=== PATIENT | female | born 1955 | race Caucasian/White ===

== ENCOUNTER 2017-05-14 22:57 | Inpatient (IN) | payer MEDICAID, MEDICARE ==
[~2017-05-14] VITALS: Ht 167.6 cm; Wt 134.7 kg
[~2017-05-14 22:57] MED LIST: ASPIR 8181 MG ORAL; ASPIRIN325 MG ORAL; CRESTOR40 MG ORAL; FOLIC ACID1 MG ORAL; GLIPIZIDE5 MG ORAL; JANUVIA100 MG ORAL; METFORMIN HCL500 M1 ORAL; PLAVIX75 MG ORAL; RAMIPRIL5 MG ORAL
[2017-05-14] MEDS ORDERED: CARVEDILOL3.125 MG GT (23:13)
[2017-05-14] MEDS ORDERED: NOVOLOG100 UNIT/3 SUBQ (23:13)
[2017-05-14] MEDS ORDERED: NORCO 5-325 TA1 EACH (23:13)
[2017-05-14] MEDS ORDERED: VITAMIN C250 MG GT (23:13)
[2017-05-14] MEDS ORDERED: FERROUS SU300 MG/5 M ORAL (23:13)
[2017-05-14] MEDS ORDERED: FAMOTIDINE20 MG GT (23:13)
[2017-05-14] MEDS ORDERED: HEPARIN SO5000 UNIT2 SUBQ (23:13)
[2017-05-14] MEDS ORDERED: DUONEB 0.5-3(2.53 ML HHN (23:13)
[2017-05-14] MEDS ORDERED: PROMOD946 ML GT (23:13)
[2017-05-14] MEDS ORDERED: LEVETIRACE100 MG/1 M GT (23:13)
[2017-05-14] MEDS ORDERED: AMIODARONE HCL400 M1 NG (23:13)
[2017-05-14] MEDS ORDERED: RENA-VITE RX T1 EAC1 GT (23:13)
[2017-05-14] MEDS ORDERED: VIMPAT10 MG/1 ML GT (23:13)
--- NOTE | 2017-05-14 23:19 | Emergency Room Report ---
History of Present Illness General Chief Complaint: Vomiting Source: Patient Present Illness HPI 61-year-old female, respiratory failure, tracheostomy to ventilator, bedbound, hypertension, end-stage renal disease on dialysis Saturday, last dialysis was today, diabetes, presenting with 2 days of intractable nausea and vomiting. Patient not able to speak, EMS states that patient has had within 5- 6 episodes of nonbilious nonbloody vomiting per day. No diarrhea. Patient able to answer yes or no questions. Currently denying abdominal pain. Allergies: Coded Allergies: CODEINE (Verified Allergy, Mild, 04/07/14) Patient History Past Medical History: see triage record Past Surgical History: unable to obtain Pertinent Family History: unable to obtain Last Menstrual Period: NA Now: No Reviewed Nursing Documentation: PMH: Agreed, PSxH: Agreed Nursing Documentation-PMH Hx Hypertension: Yes Hx Diabetes: Yes - Type 2 DM Hx Cancer: No Hx Gastrointestinal Problems: Yes - ESRD, dependence on Renal Dialysis Hx Neurological Problems: Yes - dysphagia, muscle weakness Hx Cerebrovascular Accident: Yes - MINI STROKE 2002 Review of Systems All Other Systems: negative except mentioned in HPI Physical Exam Vital Signs Date Time Temp Pulse Resp B/P (MAP) Pulse Ox O2 Delivery O2 Flow Rate FiO2 05/14/17 22:57 97.9 99 18 150/74 99 Room Air Sp02 EP Interpretation: reviewed, normal General Appearance: mild distress, other - obese elderly female, trach'ed to vent, awake and can answer yes/no ?s, Chronically Ill Head: normocephalic, atraumatic Eyes: bilateral eye normal inspection, bilateral eye PERRL, bilateral eye EOMI ENT: normal pharynx, moist mucus membranes Neck: normal inspection, full range of motion, supple Respiratory: other - [facility] b/s b/l. trach in place Cardiovascular #1: normal peripheral pulses, regular rate, rhythm, edema Cardiovascular #2: 2+ radial (R), 2+ radial (L) Gastrointestinal: other - peg tube in place, nontender all parts of abdomen. soft Musculoskeletal: normal inspection, back normal, normal range of motion, non- tender Neurologic: other - awake, can move upper ext spont and on command. cannot cooperate with full neuro exam Psychiatric: normal inspection, judgement/insight normal, memory normal Skin: normal inspection, normal color, no rash, warm/dry, well hydrated, normal turgor Medical Decision Making Diagnostic Impression: Primary Impression: Intractable nausea and vomiting Additional Impression: ESRD (end stage renal disease) ER Course 61-year-old female, tracheostomy, PEG tube, intractable nausea and vomiting for 2 days Differential Diagnosis: Gastritis, gastroenteritis, cholecystitis, appendicitis, diverticulitis, UTI/ pyelo SBO, mesenteric ischemia, cardiac At this time abdomen is soft nontender, not likely to have acute intra- abdominal surgical pathology, will hold CT for now. No history of obstipation. Plan: Basic labs, ua, ekg Zofran, IVF ER course: Patient has remained HD stable during ED stay. given ivf and zofran Disposition: Patient will be admitted to [facility] Discussed with hospitalist Dr Burgos Please note that this Emergency Department Report was dictated using [employer]ment[employer] developer technology software, occasionally this can lead to erroneous entry secondary to interpretation by the dictation equipment EKG Diagnostic Results EP Interpretation: Yes Rate: normal Rhythm: NSR ST Segments: No acute changes ASA given to patient: No Rhythm Strip EP Interpretation: Yes Rate: 95 Rhythm: NSR, no PVCs, no ectopy Chest X-ray CXR: Ordered: Yes 1 view Indication: Chest pain EP interpretation: Yes Interpretation: Cardiomegaly with pulmonary vascular congestion. Dialysis catheter noted right-sided chest. Tracheostomy tube. Impression: Cardiomegaly with pulmonary vascular congestion. Dialysis catheter noted right-sided chest. Tracheostomy tube. Electronically signed by Farideh Borges MD Laboratory Tests Test 05/14/17 23:30 White Blood Count 14.9 K/UL (4.8-10.8) H Red Blood Count 3.23 M/UL (4.20-5.40) L Hemoglobin 9.4 G/DL (12.0-16.0) L Hematocrit 29.5 % (37.0-47.0) L Mean Corpuscular Volume 91 FL (80-99) Mean Corpuscular Hemoglobin 29.0 PG (27.0-31.0) Mean Corpuscular Hemoglobin Concent 31.8 G/DL (32.0-36.0) L Red Cell Distribution Width 16.1 % (11.6-14.8) H Platelet Count 612 K/UL (150-450) H Mean Platelet Volume 5.0 FL (6.5-10.1) L Neutrophils (%) (Auto) 75.5 % (45.0-75.0) H Lymphocytes (%) (Auto) 18.0 % (20.0-45.0) L Monocytes (%) (Auto) 4.7 % (1.0-10.0) Eosinophils (%) (Auto) 1.4 % (0.0-3.0) Basophils (%) (Auto) 0.5 % (0.0-2.0) Sodium Level 139 MMOL/L (136-145) Potassium Level 3.1 MMOL/L (3.5-5.1) L Chloride Level 100 MMOL/L (98-107) Carbon Dioxide Level 31 MMOL/L (21-32) Anion Gap 8 mmol/L (5-15) Blood Urea Nitrogen 28 mg/dL (7-18) H Creatinine 3.4 MG/DL (0.55-1.30) H Estimate Glomerular Filtration Rate 13.7 mL/min (>60) Glucose Level 173 MG/DL (74-106) H Lactic Acid Level 0.90 mmol/L (0.66-2.22) Calcium Level 8.8 MG/DL (8.5-10.1) Total Bilirubin 0.4 MG/DL (0.2-1.0) Aspartate Amino Transferase (AST) 10 U/L (15-37) L Alanine Aminotransferase (ALT) 12 U/L (12-78) Alkaline Phosphatase 224 U/L (46-116) H Troponin I 0.037 ng/mL (0.000-0.056) Pro-B-Type Natriuretic Peptide > 01623 pg/mL (0-125) H Total Protein 7.5 G/DL (6.4-8.2) Albumin 1.6 G/DL (3.4-5.0) L Globulin 5.9 g/dL Albumin/Globulin Ratio 0.3 (1.0-2.7) L Last Vital Signs Date Time Temp Pulse Resp B/P (MAP) Pulse Ox O2 Delivery O2 Flow Rate FiO2 05/14/17 22:57 97.9 99 18 150/74 99 Room Air Disposition: ADMITTED INPATIENT Condition: Serious Farideh Borges M.D. May 14, 2017 23:19
[2017-05-14 23:30] VITALS: BP 150/74
[2017-05-14 23:54] LABS: BASOPHILS % (AUTO) 0.5 % (0.0-2.0); EOSINOPHILS % (AUTO) 1.4 % (0.0-3.0); HEMATOCRIT 29.5 % (37.0-47.0); HEMOGLOBIN 9.4 G/DL (12.0-16.0); MEAN CORPUSCULAR VOLUME 91 FL (80-99); MONOCYTES % (AUTO) 4.7 % (1.0-10.0); NEUTROPHILS % (AUTO) 75.5 % (45.0-75.0); PLATELET COUNT 612 K/UL (150-450); RED BLOOD COUNT 3.23 M/UL (4.20-5.40); RED CELL DISTRIBUTION WIDTH 16.1 % (11.6-14.8); WHITE BLOOD COUNT 14.9 K/UL (4.8-10.8)
[2017-05-15] VITALS (7 sets, daily range): BP systolic 110–140; BP diastolic 51–66
[2017-05-15 00:07] LABS: ANION GAP 8 mmol/L (5-15); BLOOD UREA NITROGEN 28 mg/dL (7-18); CALCIUM 8.8 MG/DL (8.5-10.1); CARBON DIOXIDE 31 MMOL/L (21-32); CHLORIDE 100 MMOL/L (98-107); CREATININE 3.4 MG/DL (0.55-1.30); POTASSIUM 3.1 MMOL/L (3.5-5.1); SODIUM 139 MMOL/L (136-145)
[2017-05-15 00:17] LABS: ALANINE AMINOTRANSFERASE 12 U/L (12-78); ALBUMIN 1.6 G/DL (3.4-5.0); ALBUMIN/GLOBULIN RATIO 0.3 (1.0-2.7); ALKALINE PHOSPHATASE 224 U/L (46-116); ASPARTATE AMINO TRANSFERASE 10 U/L (15-37); BILIRUBIN,TOTAL 0.4 MG/DL (0.2-1.0)
[2017-05-15 06:24] LABS: BASOPHILS % (AUTO) 0.4 % (0.0-2.0); HEMATOCRIT 26.1 % (37.0-47.0); HEMOGLOBIN 8.2 G/DL (12.0-16.0); LYMPHOCYTES % (AUTO) 17.8 % (20.0-45.0); MEAN CORPUSCULAR VOLUME 93 FL (80-99); MONOCYTES % (AUTO) 4.6 % (1.0-10.0); NEUTROPHILS % (AUTO) 76.3 % (45.0-75.0); PLATELET COUNT 549 K/UL (150-450); RED BLOOD COUNT 2.81 M/UL (4.20-5.40); RED CELL DISTRIBUTION WIDTH 16.3 % (11.6-14.8); WHITE BLOOD COUNT 16.1 K/UL (4.8-10.8)
[2017-05-15 06:46] LABS: ANION GAP 10 mmol/L (5-15); BLOOD UREA NITROGEN 29 mg/dL (7-18); CALCIUM 8.6 MG/DL (8.5-10.1); CARBON DIOXIDE 28 MMOL/L (21-32); CHLORIDE 101 MMOL/L (98-107); CREATININE 3.5 MG/DL (0.55-1.30); POTASSIUM 3.3 MMOL/L (3.5-5.1); SODIUM 139 MMOL/L (136-145)
[2017-05-15] MEDS: levETIRAcetam 500mg/5ml Liquid GT SCH ×2 (08:45→21:16)
[2017-05-15] MEDS: Lacosamide 100 MG TABLET ORAL SCH ×2 (08:45→21:16)
[2017-05-15 09:33] LABS: % IRON SATURATION 20 % (15-50); IRON 20 ug/dL (50-175); TOTAL IRON BINDING CAPACITY 100 ug/dL (250-450)
[2017-05-15 09:49] LABS: CHOLESTEROL 132 MG/DL (< 200); GAMMA GLUTAMYL TRANSPEPTIDASE 46 U/L (5-85); HDL CHOLESTEROL 37 MG/DL (40-60); PHOSPHORUS 3.3 MG/DL (2.5-4.9); TRIGLYCERIDES 54 MG/DL (30-150)
[2017-05-15 10:37] LABS: FERRITIN 1649 NG/ML (8-388)
--- NOTE | 2017-05-15 11:30 | Diagnostic Imaging Report ---
Indication: Pain, vomiting Technique: XRAY Chest 1v Comparison: None Findings: Heart appears borderline enlarged. There is pulmonary vascular congestion. There is patchy retrocardiac atelectasis/consolidation. Small left pleural effusion. No pneumothorax. Tracheostomy tube and right-sided dialysis catheter in place. Probable gastrostomy tube partially visualized Impression: Cardiomegaly with apparent pulmonary vascular congestion. These findings may be exaggerated by somewhat low lung volumes. Patchy retrocardiac atelectasis/consolidation. Small left pleural effusion. Study was obtained via the emergency department however the patient was admitted to the hospital at the the time of the final dictation.
[2017-05-15] MEDS: Piperacillin/Tazobactam 2.25 GM in D5W 55 ML IVPB SCH ×2 (13:32→21:16)
--- NOTE | 2017-05-15 15:26 | Consultation ---
Consult Note Consult Note asked to eval for dialysis management- Patient Vent-Trach not historian 61-year-old female, respiratory failure, tracheostomy to ventilator, bedbound, hypertension, end-stage renal disease on dialysis Saturday, last dialysis was today, diabetes, presenting with 2 days of intractable nausea and vomiting. Patient not able to speak, EMS states that patient has had within 5- 6 episodes of nonbilious nonbloody vomiting per day. No diarrhea. Patient able to answer yes or no questions. Currently denying abdominal pain. Allergies: CODEINE (Verified Allergy, Mild, 04/07/14) Hx Hypertension: Yes Hx Diabetes: Yes - Type 2 DM Hx Gastrointestinal Problems: Yes - ESRD, dependence on Renal Dialysis Hx Neurological Problems: Yes - dysphagia, muscle weakness Hx Cerebrovascular Accident: Yes - MINI STROKE 2002 examined- data reviewed Assessment/Plan ESRD- Intractable nausea and vomiting- Chronic Respiratory failure- Anemia Obesity Sz disorders DM Plan: HD as needed, will schedule for 05/16 Optimize pulmonary and cardiac status per consultants RICK LEUNG May 15, 2017 15:26
--- NOTE | 2017-05-15 18:57 | Wound Care Consultation ---
Wound Assessment Wound Assessment : Wound Number: 1 Wound Present on Admission: Yes New Wound: No Status Change of Wound: No Wound Location Body Site Modif: mid Wound Location Body Site: sacral Wound Type: pressure ulcer Rachel Test: Does not Rachel Pressure Ulcer Stage: Unstageable Wound Thickness: Full Thickness Wound Length: 7.5 Wound Width: 7.5 Wound Depth: utd Percent of Wound [place]/Red: 50 Percent of Wound Bed Yellow/Wh: 50 Wound Drainage Description: Serosanguineous Wound Drainage Amount: Moderate Wound Drainage Odor: Mild Odor Tissue Surrounding Wound: Macerated Wound General Appearance: Reddened - yellow slough, Draining, Unapproximated , Necrotic, Tendon Visible, Muscle Visible, Bone Visible Wound Comment #1 Sacral unstageable pressure ulcer Recommendation -Local wound care per protocol -Keep clean and dry -Optimize nutrition -Turn and reposition -Offload both heels -Low air loss mattress -Heel protector on both heel -Assess and f/u accordingly for any changes DEBORA ART RN May 15, 2017 18:56
--- NOTE | 2017-05-15 20:32 | Consultation ---
DATE OF CONSULTATION: 05/15/2017 INFECTIOUS DISEASES CONSULTATION PRIMARY ATTENDING PHYSICIAN: Simone Murillo M.D. REASON FOR CONSULT: Leukocytosis. HISTORY OF PRESENT ILLNESS: This is a 61-year-old white female, who is an [facility] resident, admitted last night with intractable nausea and vomiting for two days. There was no bile in vomiting material. She is poor historian, had leukocytosis that increased to 16.1 today. The patient was afebrile. PAST MEDICAL HISTORY: Ventilator-dependent respiratory failure, end-stage renal disease on hemodialysis, diabetes mellitus, has sacral pressure ulcer stage IV, morbid obesity, and history of CVA. PAST SURGICAL HISTORY: Status post G-tube, status post tracheostomy, status post cataract surgery, and had Port-A-Cath placement. MEDICATIONS: Getting Keppra, Zofran, and . ALLERGIES: Allergic to codeine. SOCIAL HISTORY: [facility] resident. No other history obtainable. PHYSICAL EXAMINATION: VITAL SIGNS: Temperature 97.7 degrees, pulse 80, blood pressure 122/61. GENERAL APPEARANCE: No acute distress, morbidly obese. HEAD AND NECK: [place] conjunctivae. Status post tracheostomy. HEART: Normal rate, regular. LUNGS: Clear. ABDOMEN: Soft. G-tube in place. EXTREMITIES: She has no edema. She has left arm PICC line. The patient also has right-sided PermCath. LABORATORY AND DIAGNOSTIC DATA: WBC 16.1, hemoglobin 8.2, hematocrit 26.1, and platelet 549. Sodium 139, potassium 3.3, chloride 101, bicarbonate 28, BUN 29, creatinine elevated, and glucose 168. Alkaline phosphatase is slightly elevated 224. BNP is more than 35,000. Albumin is low 1.6. The patient had a chest x-ray, cardiomegaly with congestion, patchy retrocardiac atelectasis, consolidation. IMPRESSION: Leukocytosis in a patient who has nausea and vomiting. We will try to rule out intraabdominal infection. We will try to rule out urinary tract infection. The patient has stage IV sacral pressure ulcer, has diabetes mellitus, end-stage renal disease, ventilator-dependent respiratory failure, morbid obesity, and anemia. RECOMMENDATION: We will start the patient on Zosyn. We will obtain abdominal ultrasound. We will obtain UA and urine culture. We will follow up clinically. At the end of my exam, I thank Dr. Murillo for involving me in the care of this patient. Maximo Chacon M.D. DR: CATRACHO JOB#: [id number] CC: RADHA
[2017-05-16 00:46] VITALS: BP 118/55
[2017-05-16 04:00] VITALS: BP 152/82
[2017-05-16 05:34] LABS: HEMATOCRIT 24.5 % (37.0-47.0); HEMOGLOBIN 7.9 G/DL (12.0-16.0); MEAN CORPUSCULAR VOLUME 92 FL (80-99); PLATELET COUNT 529 K/UL (150-450); RED BLOOD COUNT 2.65 M/UL (4.20-5.40); RED CELL DISTRIBUTION WIDTH 16.4 % (11.6-14.8); WHITE BLOOD COUNT 16.6 K/UL (4.8-10.8)
[2017-05-16 06:01] LABS: ALANINE AMINOTRANSFERASE < 6 U/L (12-78); ALBUMIN 1.4 G/DL (3.4-5.0); ALBUMIN/GLOBULIN RATIO 0.3 (1.0-2.7); ALKALINE PHOSPHATASE 183 U/L (46-116); ANION GAP 8 mmol/L (5-15); ASPARTATE AMINO TRANSFERASE 9 U/L (15-37); BILIRUBIN,TOTAL 0.4 MG/DL (0.2-1.0); BLOOD UREA NITROGEN 32 mg/dL (7-18); CALCIUM 8.1 MG/DL (8.5-10.1); CARBON DIOXIDE 30 MMOL/L (21-32); CHLORIDE 102 MMOL/L (98-107); CREATININE 3.9 MG/DL (0.55-1.30); GAMMA GLUTAMYL TRANSPEPTIDASE 45 U/L (5-85); PHOSPHORUS 3.6 MG/DL (2.5-4.9); POTASSIUM 3.3 MMOL/L (3.5-5.1); SODIUM 140 MMOL/L (136-145)
[2017-05-16] MEDS: Piperacillin/Tazobactam 2.25 GM in D5W 55 ML IVPB SCH ×2 (06:23→13:32)
[2017-05-16 08:04] VITALS: BP 129/55
--- NOTE | 2017-05-16 08:15 | Consultation ---
DATE OF CONSULTATION: 05/15/2017 HEMATOLOGY/ONCOLOGY CONSULTATION CONSULTING PHYSICIAN: Yang Small M.D. REQUESTING PHYSICIAN: Simone Murillo M.D. REASON FOR CONSULTATION: Evaluation of anemia. IDENTIFICATION DATA: Dear Dr. Simone Murillo. The patient is a pleasant 61-year-old female with chronic respiratory failure, tracheostomy, is on ventilator, hypertension, 00:23 and end-stage renal disease on dialysis three times a week getting her dialysis, presenting today with intractable nausea and vomiting and not able to speak. EMS was called. The patient has had five to six episodes of nonbilious and nonbloody vomiting. Hematology service consulted for further evaluation and treatment. Currently, denies any abdominal pain. 00:45. Hematology service consulted for further evaluation and treatment. PAST MEDICAL HISTORY: End-stage renal disease, on dialysis, dysphagia, CVA, diabetes mellitus, and hypertension. PAST SURGICAL HISTORY: None noted. ALLERGIES: Codeine. REVIEW OF SYSTEMS: A 12-point review of systems is otherwise negative besides as noted in the history of present illness. PHYSICAL EXAMINATION: GENERAL: He is on vent and trach. VITAL SIGNS: Reviewed. PULMONARY: Decreased breath sounds. CARDIOVASCULAR: Regular rate. No S3 or S4. ABDOMEN: Soft, nontender, and nondistended. Positive 01:27 tube. EXTREMITIES: 1+ to 2+ edema. LABORATORY DATA: WBC of 15.9, hemoglobin 9.5, hematocrit 01:34, and platelet count 612,000. ASSESSMENT AND RECOMMENDATIONS: 1. Anemia secondary to chronic disease. 01:42 anemia workup. Hemoglobin goal is above 7. 2. Anemia secondary to kidney disease. Continue to closely monitor. Continue Epogen. 3. Leukocytosis, potentially secondary to underlying infection. Further monitor. Consider antibiotics if worsens. 4. Thrombocytosis, 02:08 secondary to underlying anemia. 5. Respiratory failure. She is on tracheostomy management. 6. Dysphagia, status post percutaneous endoscopic gastrostomy tube 02:14. 7. Mini stroke in 2002. I appreciate the consultation. Yang Small M.D. DR: Joe JOB#: [id number] CC:
--- NOTE | 2017-05-16 08:45 | History and Physical Report ---
DATE OF ADMISSION: 05/14/2017 NOTE: POOR AUDIO HISTORY OF PRESENT ILLNESS: The patient is admitted for intractable nausea and vomiting at the custodial. The patient is a poor historian, does have dementia, has history of seizure disorder, hypertension, diabetes, and end-stage renal disease, on hemodialysis. I cannot get any history from the patient. persistent vomiting. PAST MEDICAL HISTORY: History of NIDDM, history of morbid obesity, history of seizure disorder, history of hypertension, history of urinary incontinence, history of dysphagia, history of pneumonia, history of GERD, past history of J-tube as well as trach, , and history of COPD. ALLERGIES: Codeine. MEDICATIONS: Insulin, Coreg, Plavix, , ferrous sulfate, glipizide, Keppra, metformin, Crestor, and Januvia. FAMILY HISTORY: Unable to obtain. SOCIAL HISTORY: Unable to obtain. REVIEW OF SYSTEMS: Unable to obtain. PHYSICAL EXAMINATION: VITAL SIGNS: Temperature is 98.2, pulse 82, and blood pressure . HEENT: PERRLA. NECK: Supple. No lymphadenopathy. CHEST: Clear to auscultation. is intact. CARDIOVASCULAR: Regular rate and rhythm. GASTROINTESTINAL: Soft, distended. Positive bowel sounds. No organomegaly. EXTREMITIES: A 2+ edema. Morbid obesity, has generalized weakness. nursing notes. LABORATORY DATA: WBC of 14.9, hemoglobin 9.4, and platelets of 612,000. Sodium 139, potassium 3.1, BUN of 28, creatinine 3.4, and glucose of 127. ASSESSMENT AND PLAN: 1. Intractable vomiting. 2. Hypokalemia. 3. End-stage renal disease, on hemodialysis. 4. Seizure history. I have asked Dr. Lutz, Dr. Coe, Dr. Jackson, and Dr. Iniguez to see the patient for the above-mentioned diagnoses and treatment. We will talk to . regarding causes of intractable vomiting for the patient. Simone Murillo M.D. DR: DANETTE/GARETT JOB#: [id number] CC:
[2017-05-16] MEDS: levETIRAcetam 500mg/5ml Liquid GT SCH ×2 (08:53→21:00)
[2017-05-16] MEDS: Lacosamide 100 MG TABLET ORAL SCH ×2 (08:54→21:00)
[2017-05-16] MEDS: Amiodarone 200mg tab NG SCH (08:54)
[2017-05-16] MEDS: Dakin's 0.25% (Half Strength) 16oz TOPIC SCH (08:56)
[2017-05-16] MEDS ORDERED: Dakin's 0.25% (Half Strength) 16oz TOPIC SCH (09:00)
--- NOTE | 2017-05-16 10:12 | Diagnostic Imaging Report ---
Indication:Abdominal pain Technique: Grayscale and duplex Doppler imaging of the abdomen performed. Comparison: None Findings: Study is limited with regards to visualization of certain structures such as the spleen. Left kidney not adequately seen. The gallbladder is noted and distended with no evidence of gallstones or wall thickening. There is no ascites. CBD is normal in caliber measuring 5 mm. The liver is enlarged measuring 19 cm and appears slightly echogenic. The proximal aorta is normal in caliber. The middle distal aorta are not seen. Portal vein is patent by Doppler examination. Demonstrated part of the pancreas is unremarkable. No gross abnormalities of the right kidney identified. IMPRESSION: Unremarkable gallbladder examination. Hepatomegaly with fatty infiltration. Limited evaluation as discussed above
--- NOTE | 2017-05-16 10:30 | General Progress Note ---
Assessment/Plan Assessment/Plan GI CONSULT Assessment - N/V at SNF - possibly due to feeding via G port - s/p GJ tube, presumed due to gastroparesis - Anemia, likely due to CRF and chronic disease - resp failure, s/p trach - h/o CVA Recommendations - check CT abd/pelvis - if CT negative, restart feeds via J port - G port to gravity and for meds - elevate HOB - PPI Thank you Camilo Iniguez MD Subjective Allergies: Coded Allergies: CODEINE (Verified Allergy, Mild, 04/07/14) Objective Last 24 Hour Vital Signs Date Time Temp Pulse Resp B/P (MAP) Pulse Ox O2 Delivery O2 Flow Rate FiO2 05/16/17 09:38 82 18 40 05/16/17 08:55 83 05/16/17 08:54 80 129/55 05/16/17 08:04 97.8 80 21 129/55 99 Mechanical Ventilator 40 05/16/17 08:00 40 05/16/17 07:26 81 18 40 05/16/17 05:01 79 18 40 05/16/17 04:00 76 05/16/17 04:00 99.7 94 20 152/82 98 Mechanical Ventilator 40 05/16/17 04:00 40 05/16/17 03:42 83 18 40 05/16/17 01:01 81 18 40 05/16/17 00:46 99.0 84 20 118/55 100 40 05/15/17 22:40 80 18 40 05/15/17 21:15 82 140/63 05/15/17 20:42 82 18 40 05/15/17 20:00 84 05/15/17 20:00 40 05/15/17 20:00 98.9 84 19 110/51 100 Endotracheal Tube 40 05/15/17 18:48 81 18 40 05/15/17 16:47 79 19 40 05/15/17 16:00 85 05/15/17 16:00 98.2 83 18 140/63 100 Endotracheal Tube 40 05/15/17 16:00 40 05/15/17 15:46 72 19 40 05/15/17 12:40 75 19 40 05/15/17 12:00 98.2 80 21 121/59 100 Endotracheal Tube 40 05/15/17 12:00 79 05/15/17 12:00 40 05/15/17 11:04 80 18 40 Intake and Output 05/15/17 05/16/17 19:00 07:00 Intake Total 55 ml 110 ml Output Total 125 ml 75 ml Balance -70 ml 35 ml IV Total 55 ml 110 ml Output Urine Total 125 ml 75 ml # Bowel Movements 1 1 Laboratory Tests 05/16/17 04:45: White Blood Count 16.6H, Red Blood Count 2.65L, Hemoglobin 7.9L, Hematocrit 24.5L, Mean Corpuscular Volume 92, Mean Corpuscular Hemoglobin 29.8, Mean Corpuscular Hemoglobin Concent 32.2, Red Cell Distribution Width 16.4H, Platelet Count 529H, Mean Platelet Volume 5.0L, Neutrophils (%) (Auto) , Lymphocytes (%) (Auto) , Monocytes (%) (Auto) , Eosinophils (%) (Auto) , Basophils (%) (Auto) , Differential Total Cells Counted 100, Neutrophils % ( Manual) 83H, Lymphocytes % (Manual) 14L, Monocytes % (Manual) 3, Eosinophils % ( Manual) 0, Basophils % (Manual) 0, Band Neutrophils 0, Platelet Estimate Adequate, Platelet Morphology Normal, Hypochromasia 3+, Anisocytosis 1+, Spherocytes 1+, Sodium Level 140, Potassium Level 3.3L, Chloride Level 102, Carbon Dioxide Level 30, Anion Gap 8, Blood Urea Nitrogen 32H, Creatinine 3.9H, Estimat Glomerular Filtration Rate 11.6, Glucose Level 158H, Uric Acid 5.9, Calcium Level 8.1L, Phosphorus Level 3.6, Magnesium Level 2.4, Total Bilirubin 0.4, Gamma Glutamyl Transpeptidase 45, Aspartate Amino Transf (AST/SGOT) 9L, Alanine Aminotransferase (ALT/SGPT) < 6L, Alkaline Phosphatase 183H, Troponin I 0.050, C-Reactive Protein, Quantitative 5.3H, Pro-B-Type Natriuretic Peptide > 29629N, Total Protein 6.3L, Albumin 1.4L, Globulin 4.9, Albumin/Globulin Ratio 0.3L Height (Feet): 5 Height (Inches): 6.00 Weight (Pounds): 297 ASHWINCAMILO CONNELL May 16, 2017 10:30
--- NOTE | 2017-05-16 10:55 | Nephrology Progress Note ---
Assessment/Plan Problem List: (1) ESRD (end stage renal disease) (2) Intractable nausea and vomiting Assessment ESRD- Intractable nausea and vomiting- Chronic Respiratory failure- Anemia Obesity Sz disorders DM Plan Plan: K supplement transfuse 2 units HD as needed, will schedule for 05/16 Optimize pulmonary and cardiac status per consultants Subjective ROS Limited/Unobtainable: Yes Objective Objective Last 24 Hour Vital Signs Date Time Temp Pulse Resp B/P (MAP) Pulse Ox O2 Delivery O2 Flow Rate FiO2 05/16/17 09:38 82 18 40 05/16/17 08:55 83 05/16/17 08:54 80 129/55 05/16/17 08:04 97.8 80 21 129/55 99 Mechanical Ventilator 40 05/16/17 08:00 40 05/16/17 07:26 81 18 40 05/16/17 05:01 79 18 40 05/16/17 04:00 76 05/16/17 04:00 99.7 94 20 152/82 98 Mechanical Ventilator 40 05/16/17 04:00 40 05/16/17 03:42 83 18 40 05/16/17 01:01 81 18 40 05/16/17 00:46 99.0 84 20 118/55 100 40 05/15/17 22:40 80 18 40 05/15/17 21:15 82 140/63 05/15/17 20:42 82 18 40 05/15/17 20:00 84 05/15/17 20:00 40 05/15/17 20:00 98.9 84 19 110/51 100 Endotracheal Tube 40 05/15/17 18:48 81 18 40 05/15/17 16:47 79 19 40 05/15/17 16:00 85 05/15/17 16:00 98.2 83 18 140/63 100 Endotracheal Tube 40 05/15/17 16:00 40 05/15/17 15:46 72 19 40 05/15/17 12:40 75 19 40 05/15/17 12:00 98.2 80 21 121/59 100 Endotracheal Tube 40 05/15/17 12:00 79 05/15/17 12:00 40 05/15/17 11:04 80 18 40 Intake and Output 05/15/17 05/16/17 19:00 07:00 Intake Total 55 ml 110 ml Output Total 125 ml 75 ml Balance -70 ml 35 ml IV Total 55 ml 110 ml Output Urine Total 125 ml 75 ml # Bowel Movements 1 1 Laboratory Tests 05/16/17 04:45: White Blood Count 16.6H, Red Blood Count 2.65L, Hemoglobin 7.9L, Hematocrit 24.5L, Mean Corpuscular Volume 92, Mean Corpuscular Hemoglobin 29.8, Mean Corpuscular Hemoglobin Concent 32.2, Red Cell Distribution Width 16.4H, Platelet Count 529H, Mean Platelet Volume 5.0L, Neutrophils (%) (Auto) , Lymphocytes (%) (Auto) , Monocytes (%) (Auto) , Eosinophils (%) (Auto) , Basophils (%) (Auto) , Differential Total Cells Counted 100, Neutrophils % ( Manual) 83H, Lymphocytes % (Manual) 14L, Monocytes % (Manual) 3, Eosinophils % ( Manual) 0, Basophils % (Manual) 0, Band Neutrophils 0, Platelet Estimate Adequate, Platelet Morphology Normal, Hypochromasia 3+, Anisocytosis 1+, Spherocytes 1+, Sodium Level 140, Potassium Level 3.3L, Chloride Level 102, Carbon Dioxide Level 30, Anion Gap 8, Blood Urea Nitrogen 32H, Creatinine 3.9H, Estimat Glomerular Filtration Rate 11.6, Glucose Level 158H, Uric Acid 5.9, Calcium Level 8.1L, Phosphorus Level 3.6, Magnesium Level 2.4, Total Bilirubin 0.4, Gamma Glutamyl Transpeptidase 45, Aspartate Amino Transf (AST/SGOT) 9L, Alanine Aminotransferase (ALT/SGPT) < 6L, Alkaline Phosphatase 183H, Troponin I 0.050, C-Reactive Protein, Quantitative 5.3H, Pro-B-Type Natriuretic Peptide > 51037R, Total Protein 6.3L, Albumin 1.4L, Globulin 4.9, Albumin/Globulin Ratio 0.3L Height (Feet): 5 Height (Inches): 6.00 Weight (Pounds): 297 General Appearance: no apparent distress, lethargic Cardiovascular: normal rate Respiratory/Chest: accessory muscle use Abdomen: distended RICK LEUNG May 16, 2017 10:55
--- NOTE | 2017-05-16 11:00 | Infectious Diseases Prog Note ---
Assessment/Plan Assessment/Plan A: Leukocytosis ? Pneumonia VDRF Fatty liver Morbid obesity ESRD on HD DM Anemia Stage 4 sacral ulcer P; Continue Zosyn Sputum culture Will f/u CT scan of abdomen & pelvis Subjective ROS Limited/Unobtainable: Yes Allergies: Coded Allergies: CODEINE (Verified Allergy, Mild, 04/07/14) Objective Vital Signs Last 24 Hour Vital Signs Date Time Temp Pulse Resp B/P (MAP) Pulse Ox O2 Delivery O2 Flow Rate FiO2 05/16/17 09:38 82 18 40 05/16/17 08:55 83 05/16/17 08:54 80 129/55 05/16/17 08:04 97.8 80 21 129/55 99 Mechanical Ventilator 40 05/16/17 08:00 40 05/16/17 07:26 81 18 40 05/16/17 05:01 79 18 40 05/16/17 04:00 76 05/16/17 04:00 99.7 94 20 152/82 98 Mechanical Ventilator 40 05/16/17 04:00 40 05/16/17 03:42 83 18 40 05/16/17 01:01 81 18 40 05/16/17 00:46 99.0 84 20 118/55 100 40 05/15/17 22:40 80 18 40 05/15/17 21:15 82 140/63 05/15/17 20:42 82 18 40 05/15/17 20:00 84 05/15/17 20:00 40 05/15/17 20:00 98.9 84 19 110/51 100 Endotracheal Tube 40 05/15/17 18:48 81 18 40 05/15/17 16:47 79 19 40 05/15/17 16:00 85 05/15/17 16:00 98.2 83 18 140/63 100 Endotracheal Tube 40 05/15/17 16:00 40 05/15/17 15:46 72 19 40 05/15/17 12:40 75 19 40 05/15/17 12:00 98.2 80 21 121/59 100 Endotracheal Tube 40 05/15/17 12:00 79 05/15/17 12:00 40 05/15/17 11:04 80 18 40 Height (Feet): 5 Height (Inches): 6.00 Weight (Pounds): 297 HEENT: status post trach Respiratory/Chest: lungs clear, other - on ventilator Cardiovascular: normal rate Abdomen: soft, non tender, other - G/J tube Extremities: no edema Neurologic/Psychiatric: other - opens eyes Laboratory Tests Test 05/16/17 04:45 White Blood Count 16.6 K/UL (4.8-10.8) H Red Blood Count 2.65 M/UL (4.20-5.40) L Hemoglobin 7.9 G/DL (12.0-16.0) L Hematocrit 24.5 % (37.0-47.0) L Mean Corpuscular Volume 92 FL (80-99) Mean Corpuscular Hemoglobin 29.8 PG (27.0-31.0) Mean Corpuscular Hemoglobin Concent 32.2 G/DL (32.0-36.0) Red Cell Distribution Width 16.4 % (11.6-14.8) H Platelet Count 529 K/UL (150-450) H Mean Platelet Volume 5.0 FL (6.5-10.1) L Neutrophils (%) (Auto) % (45.0-75.0) Lymphocytes (%) (Auto) % (20.0-45.0) Monocytes (%) (Auto) % (1.0-10.0) Eosinophils (%) (Auto) % (0.0-3.0) Basophils (%) (Auto) % (0.0-2.0) Differential Total Cells Counted 100 Neutrophils % (Manual) 83 % (45-75) H Lymphocytes % (Manual) 14 % (20-45) L Monocytes % (Manual) 3 % (1-10) Eosinophils % (Manual) 0 % (0-3) Basophils % (Manual) 0 % (0-2) Band Neutrophils 0 % (0-8) Platelet Estimate Adequate Platelet Morphology Normal Hypochromasia 3+ Anisocytosis 1+ Spherocytes 1+ Sodium Level 140 MMOL/L (136-145) Potassium Level 3.3 MMOL/L (3.5-5.1) L Chloride Level 102 MMOL/L (98-107) Carbon Dioxide Level 30 MMOL/L (21-32) Anion Gap 8 mmol/L (5-15) Blood Urea Nitrogen 32 mg/dL (7-18) H Creatinine 3.9 MG/DL (0.55-1.30) H Estimat Glomerular Filtration Rate 11.6 mL/min (>60) Glucose Level 158 MG/DL (74-106) H Uric Acid 5.9 MG/DL (2.6-7.2) Calcium Level 8.1 MG/DL (8.5-10.1) L Phosphorus Level 3.6 MG/DL (2.5-4.9) Magnesium Level 2.4 MG/DL (1.8-2.4) Total Bilirubin 0.4 MG/DL (0.2-1.0) Gamma Glutamyl Transpeptidase 45 U/L (5-85) Aspartate Amino Transf (AST/SGOT) 9 U/L (15-37) L Alanine Aminotransferase (ALT/SGPT) < 6 U/L (12-78) L Alkaline Phosphatase 183 U/L (46-116) H Troponin I 0.050 ng/mL (0.000-0.056) C-Reactive Protein, Quantitative 5.3 mg/dL (0.00-0.90) H Pro-B-Type Natriuretic Peptide > 24398 pg/mL (0-125) H Total Protein 6.3 G/DL (6.4-8.2) L Albumin 1.4 G/DL (3.4-5.0) L Globulin 4.9 g/dL Albumin/Globulin Ratio 0.3 (1.0-2.7) L Current Medications Medications (Trade) Dose Ordered Sig/Alejandro Route PRN Reason Start Time Stop Time Status Last Admin Dose Admin Amiodarone HCl (Cordarone) 200 mg DAILY NG 05/16/17 09:00 06/15/17 08:59 05/16/17 08:54 Carvedilol (Coreg) 3.125 mg EVERY 12 HOURS GT 05/15/17 21:00 06/14/17 20:59 05/16/17 08:54 Lacosamide (Vimpat) 200 mg Q12HR ORAL 05/15/17 09:00 06/14/17 08:59 05/16/17 08:54 Lansoprazole (Prevacid) 30 mg DAILY GT 05/17/17 09:00 06/16/17 08:59 Levetiracetam (Keppra) 1,000 mg Q12HR GT 05/15/17 09:00 06/14/17 08:59 05/16/17 08:53 Ondansetron HCl (Zofran) 4 mg Q6H PRN IVP Nausea & Vomiting 05/15/17 06:00 06/14/17 05:59 Piperacillin Sod/ Tazobactam Sod 2.25 gm/Dextrose 55 ml @ 110 mls/hr Q8HR IVPB 05/15/17 13:00 05/20/17 12:59 05/16/17 06:23 Sodium Hypochlorite (Dakin's Half Strength) 1 applic DAILY TOPIC 05/16/17 09:00 06/15/17 08:59 05/16/17 08:56 SLIME SOLIMAN May 16, 2017 11:00
[2017-05-16 12:07] VITALS: BP 117/52
--- NOTE | 2017-05-16 15:36 | Diagnostic Imaging Report ---
Indication: Abdominal pain Technique: Continuous helical transaxial imaging of the abdomen and pelvis was obtained from the lung bases to the pubic symphysis. No intravenous contrast was administered. Coronal 2-D reformats were also obtained. Automatic Exposure Control was utilized. Total Dose length Product (DLP): 1587.[address] Dose Index Volume (CTDIvol): 26.25 mGy Comparison: none Findings: There is a posterior basilar consolidation and small bilateral effusions. Generalized anasarca noted. Gastrostomy noted. Aorta is moderately calcified. Evaluation limited by the absence of intravenous contrast and breathing motion. No bowel obstruction identified. There is thickening of the wall of the rectosigmoid colon. Colitis not excluded distally. catheter noted in good position. Atrophic uterus noted. IMPRESSION: Limited study due to body habitus, lack of intravenous contrast material and breathing motion. Suspected colitis versus under distention in the rectosigmoid region. Please correlate clinically. Bilateral pleural effusions and posterior basilar atelectasis versus pneumonia. Anasarca Atherosclerotic disease Gastrostomy Small umbilical hernia containing fat catheter good position. The CT scanner at [facility] is accredited by the [employer] and the scans are performed using dose optimization techniques as appropriate to a performed exam including Automatic Exposure control.
[2017-05-16 16:00] VITALS: BP 134/62
--- NOTE | 2017-05-16 16:20 | General Progress Note ---
Assessment/Plan Assessment/Plan #. DVT bilaterally --> recommend ivc filter placement given anemia that is progressive, hold off anticoag --> agree with filter, obtain consent from family #. Anemia secondary to chronic disease. --> anemia w/u has been reviewed --> hgb goal >7 --> check occult blood #. Anemia secondary to kidney disease. Continue to closely monitor. Continue Epogen. #. Leukocytosis, potentially secondary to underlying infection. Further monitor. Consider antibiotics if worsens. #. Thrombocytosis, likely secondary to underlying anemia. #. Respiratory failure. She is on tracheostomy management. #. Dysphagia, status post percutaneous endoscopic gastrostomy tube #. Mini stroke in 2002. I appreciate the consultation. Subjective Constitutional: Denies: no symptoms, chills, diaphoresis, fever, malaise, weakness, other HEENT: Denies: no symptoms, eye pain, blurred vision, tearing, double vision, ear pain, ear discharge, nose pain, nose congestion, throat pain, throat swelling, mouth pain, mouth swelling, other Cardiovascular: Denies: no symptoms, chest pain, edema, irregular heart rate, lightheadedness, palpitations, syncope, other Respiratory: Denies: no symptoms, cough, orthopnea, shortness of breath, SOB with excertion, SOB at rest, sputum, stridor, wheezing, other Gastrointestinal/Abdominal: Denies: no symptoms, abdomen distended, abdominal pain, black stools, tarry stools, blood in stool, constipated, diarrhea, difficulty swallowing, nausea, poor appetite, poor fluid intake, rectal bleeding , vomiting, other Genitourinary: Denies: no symptoms, burning, discharge, frequency, flank pain, hematuria, incontinence, pain, urgency, other Neurologic/Psychiatric: Denies: no symptoms, anxiety, depressed, emotional problems, headache, numbness, paresthesia, pre-existing deficit, seizure, tingling, tremors, weakness, other Endocrine: Denies: no symptoms, excessive sweating, flushing, intolerance to cold, intolerance to heat, increased hunger, increased thirst, increased urine, unexplained weight gain, unexplained weight loss, other Hematologic/Lymphatic: Denies: no symptoms, anemia, easy bleeding, easy bruising, other Allergies: Coded Allergies: CODEINE (Verified Allergy, Mild, 04/07/14) Subjective on vent, trach Objective Last 24 Hour Vital Signs Date Time Temp Pulse Resp B/P (MAP) Pulse Ox O2 Delivery O2 Flow Rate FiO2 05/16/17 15:22 78 24 40 05/16/17 14:42 76 18 40 05/16/17 12:40 74 18 40 05/16/17 12:07 99.8 78 18 117/52 98 Mechanical Ventilator 40 05/16/17 12:00 40 05/16/17 12:00 77 05/16/17 11:18 82 18 40 05/16/17 09:38 82 18 40 05/16/17 08:55 83 05/16/17 08:54 80 129/55 05/16/17 08:04 97.8 80 21 129/55 99 Mechanical Ventilator 40 05/16/17 08:00 40 05/16/17 07:26 81 18 40 05/16/17 05:01 79 18 40 05/16/17 04:00 76 05/16/17 04:00 99.7 94 20 152/82 98 Mechanical Ventilator 40 05/16/17 04:00 40 05/16/17 03:42 83 18 40 05/16/17 01:01 81 18 40 05/16/17 00:46 99.0 84 20 118/55 100 40 05/15/17 22:40 80 18 40 05/15/17 21:15 82 140/63 05/15/17 20:42 82 18 40 05/15/17 20:00 84 05/15/17 20:00 40 05/15/17 20:00 98.9 84 19 110/51 100 Endotracheal Tube 40 05/15/17 18:48 81 18 40 05/15/17 16:47 79 19 40 Intake and Output 05/15/17 05/16/17 19:00 07:00 Intake Total 55 ml 110 ml Output Total 125 ml 75 ml Balance -70 ml 35 ml IV Total 55 ml 110 ml Output Urine Total 125 ml 75 ml # Bowel Movements 1 1 Laboratory Tests 05/16/17 04:45: White Blood Count 16.6H, Red Blood Count 2.65L, Hemoglobin 7.9L, Hematocrit 24.5L, Mean Corpuscular Volume 92, Mean Corpuscular Hemoglobin 29.8, Mean Corpuscular Hemoglobin Concent 32.2, Red Cell Distribution Width 16.4H, Platelet Count 529H, Mean Platelet Volume 5.0L, Neutrophils (%) (Auto) , Lymphocytes (%) (Auto) , Monocytes (%) (Auto) , Eosinophils (%) (Auto) , Basophils (%) (Auto) , Differential Total Cells Counted 100, Neutrophils % ( Manual) 83H, Lymphocytes % (Manual) 14L, Monocytes % (Manual) 3, Eosinophils % ( Manual) 0, Basophils % (Manual) 0, Band Neutrophils 0, Platelet Estimate Adequate, Platelet Morphology Normal, Hypochromasia 3+, Anisocytosis 1+, Spherocytes 1+, Sodium Level 140, Potassium Level 3.3L, Chloride Level 102, Carbon Dioxide Level 30, Anion Gap 8, Blood Urea Nitrogen 32H, Creatinine 3.9H, Estimat Glomerular Filtration Rate 11.6, Glucose Level 158H, Uric Acid 5.9, Calcium Level 8.1L, Phosphorus Level 3.6, Magnesium Level 2.4, Total Bilirubin 0.4, Gamma Glutamyl Transpeptidase 45, Aspartate Amino Transf (AST/SGOT) 9L, Alanine Aminotransferase (ALT/SGPT) < 6L, Alkaline Phosphatase 183H, Troponin I 0.050, C-Reactive Protein, Quantitative 5.3H, Pro-B-Type Natriuretic Peptide > 34532R, Total Protein 6.3L, Albumin 1.4L, Globulin 4.9, Albumin/Globulin Ratio 0.3L Height (Feet): 5 Height (Inches): 6.00 Weight (Pounds): 297 General Appearance: no apparent distress EENT: TMs normal Neck: normal alignment Cardiovascular: normal rate Respiratory/Chest: chest wall non-tender Abdomen: non tender Extremities: non-tender Edema: 1+ Leg (L), 1+ Leg (R) Neurologic: alert Skin: warm/dry Yang Small May 16, 2017 16:20
--- NOTE | 2017-05-16 19:43 | General Progress Note ---
Assessment/Plan Problem List: (1) ESRD (end stage renal disease) ICD Codes: N18.6 - End stage renal disease SNOMED: 61193128 (2) Intractable nausea and vomiting ICD Codes: R11.2 - Nausea with vomiting, unspecified SNOMED: 059959698 Status: progressing Assessment/Plan afebrile vitals stable trach and j gtube persistent vomiting dm h//o gastroparesis sz chronic leukocytosis anemia of chronic dz Subjective ROS Limited/Unobtainable: Yes Allergies: Coded Allergies: CODEINE (Verified Allergy, Mild, 04/07/14) Objective Last 24 Hour Vital Signs Date Time Temp Pulse Resp B/P (MAP) Pulse Ox O2 Delivery O2 Flow Rate FiO2 05/16/17 19:23 76 22 40 05/16/17 16:40 75 18 40 05/16/17 16:00 84 05/16/17 16:00 98.5 77 18 134/62 99 Mechanical Ventilator 40 05/16/17 16:00 40 05/16/17 15:22 78 24 40 05/16/17 14:42 76 18 40 05/16/17 12:40 74 18 40 05/16/17 12:07 99.8 78 18 117/52 98 Mechanical Ventilator 40 05/16/17 12:00 40 05/16/17 12:00 77 05/16/17 11:18 82 18 40 05/16/17 09:38 82 18 40 05/16/17 08:55 83 05/16/17 08:54 80 129/55 05/16/17 08:04 97.8 80 21 129/55 99 Mechanical Ventilator 40 05/16/17 08:00 40 05/16/17 07:26 81 18 40 05/16/17 05:01 79 18 40 05/16/17 04:00 76 05/16/17 04:00 99.7 94 20 152/82 98 Mechanical Ventilator 40 05/16/17 04:00 40 05/16/17 03:42 83 18 40 05/16/17 01:01 81 18 40 05/16/17 00:46 99.0 84 20 118/55 100 40 05/15/17 22:40 80 18 40 05/15/17 21:15 82 140/63 05/15/17 20:42 82 18 40 05/15/17 20:00 84 05/15/17 20:00 40 05/15/17 20:00 98.9 84 19 110/51 100 Endotracheal Tube 40 Intake and Output 05/15/17 05/16/17 19:00 07:00 Intake Total 55 ml 110 ml Output Total 125 ml 75 ml Balance -70 ml 35 ml IV Total 55 ml 110 ml Output Urine Total 125 ml 75 ml # Bowel Movements 1 1 Laboratory Tests 05/16/17 04:45: White Blood Count 16.6H, Red Blood Count 2.65L, Hemoglobin 7.9L, Hematocrit 24.5L, Mean Corpuscular Volume 92, Mean Corpuscular Hemoglobin 29.8, Mean Corpuscular Hemoglobin Concent 32.2, Red Cell Distribution Width 16.4H, Platelet Count 529H, Mean Platelet Volume 5.0L, Neutrophils (%) (Auto) , Lymphocytes (%) (Auto) , Monocytes (%) (Auto) , Eosinophils (%) (Auto) , Basophils (%) (Auto) , Differential Total Cells Counted 100, Neutrophils % ( Manual) 83H, Lymphocytes % (Manual) 14L, Monocytes % (Manual) 3, Eosinophils % ( Manual) 0, Basophils % (Manual) 0, Band Neutrophils 0, Platelet Estimate Adequate, Platelet Morphology Normal, Hypochromasia 3+, Anisocytosis 1+, Spherocytes 1+, Sodium Level 140, Potassium Level 3.3L, Chloride Level 102, Carbon Dioxide Level 30, Anion Gap 8, Blood Urea Nitrogen 32H, Creatinine 3.9H, Estimat Glomerular Filtration Rate 11.6, Glucose Level 158H, Uric Acid 5.9, Calcium Level 8.1L, Phosphorus Level 3.6, Magnesium Level 2.4, Total Bilirubin 0.4, Gamma Glutamyl Transpeptidase 45, Aspartate Amino Transf (AST/SGOT) 9L, Alanine Aminotransferase (ALT/SGPT) < 6L, Alkaline Phosphatase 183H, Troponin I 0.050, C-Reactive Protein, Quantitative 5.3H, Pro-B-Type Natriuretic Peptide > 71267O, Total Protein 6.3L, Albumin 1.4L, Globulin 4.9, Albumin/Globulin Ratio 0.3L Height (Feet): 5 Height (Inches): 6.00 Weight (Pounds): 297 Simone Murillo MD May 16, 2017 19:43
[2017-05-16 20:00] VITALS: BP 130/67
--- NOTE | 2017-05-16 21:15 | Consultation ---
DATE OF CONSULTATION: 05/16/2017 GASTROENTEROLOGY CONSULTATION REPORT CONSULTING PHYSICIAN: Camilo Iniguez M.D. CHIEF COMPLAINT: I was asked to see this patient by Dr. Simone Murillo for evaluation of vomiting. HISTORY OF PRESENT ILLNESS: The patient is an unfortunate 61-year-old white woman with chronic respiratory failure with a tracheostomy and with chronic renal failure, on dialysis. She was brought in from a longterm due to intractable nausea and vomiting. The patient herself was not very communicative and unable to provide any details. In the hospital here, so far she has not vomited, but she has been kept NPO. I called the longterm and the nurse told me that according to the notes, she has been fed through the gastrostomy port with a gastrojejunostomy catheter. The patient does have a gastrojejunostomy catheter placed, but the records are from a different hospital. Presumably, she was placed for gastroparesis, but this detail was not available to me at this time. The patient also has a leukocytosis for which she is receiving antibiotics. PAST MEDICAL HISTORY: History of end-stage renal disease, on dialysis. Dysphagia, status post gastrostomy tube placement. Respiratory failure, status post tracheostomy tube placement. Stroke, diabetes, hypertension, and anemia. ALLERGIES: Codeine. FAMILY HISTORY: Noncontributory. SOCIAL HISTORY: The patient resides in a longterm and requires [id number] care. REVIEW OF SYSTEMS: Otherwise negative. PHYSICAL EXAMINATION: GENERAL: Debilitated white woman, seen in her room. HEENT: Normocephalic and atraumatic. Sclerae anicteric. NECK: Showed tracheostomy catheter. CHEST: Revealed coarse breath sounds. CARDIOVASCULAR: Revealed a regular rate. ABDOMEN: Soft with good bowel sounds. Gastrojejunostomy catheter was in good position and both ports flushed repeatedly. EXTREMITIES: Revealed trace edema. LABORATORY DATA: Laboratory data was noted. ASSESSMENT: This patient presents with an intractable nausea and vomiting from a longterm of unclear etiology. Given the report from the longterm, it is possible that the gastrostomy tube feeding through the gastrostomy port may have resulted in vomiting from presumed gastroparesis. A trial tube feeding will be given here again, but this time through jejunostomy catheter. Since the patient has a white count elevation, then a CT scan of the abdomen and pelvis should be done to rule out any intraabdominal pathology such as abscesses, infections, or obstruction. Antibiotics were given as written by the Infectious Diseases pci security consultant. I will advice the nursing staff to place the gastrostomy catheter to gravity. RECOMMENDATIONS: Per above discussion and per orders written in the chart. Thank you for asking me to participate in the care of this patient. Camilo Iniguez M.D. DR: TANIKA JOB#: [id number] CC:
[2017-05-17] VITALS: BP 151/53
[2017-05-17] MEDS: Piperacillin/Tazobactam 2.25 GM in D5W 55 ML IVPB SCH ×3 (00:16→13:56)
[2017-05-17 04:00] VITALS: BP 109/60
[2017-05-17 08:00] VITALS: BP 150/62
[2017-05-17] MEDS: levETIRAcetam 500mg/5ml Liquid GT SCH (08:46)
[2017-05-17] MEDS: Amiodarone 200mg tab NG SCH (08:46)
[2017-05-17] MEDS: Lacosamide 100 MG TABLET ORAL SCH (08:46)
[2017-05-17] MEDS: Dakin's 0.25% (Half Strength) 16oz TOPIC SCH (08:47)
--- NOTE | 2017-05-17 08:54 | Infectious Diseases Prog Note ---
Assessment/Plan Assessment/Plan A: Leukocytosis Pneumonia Colitis VDRF Fatty liver Morbid obesity ESRD on HD DM Anemia Stage 4 sacral ulcer P; Continue Zosyn, add Flagyl Will f/u sputum culture Subjective ROS Limited/Unobtainable: Yes Allergies: Coded Allergies: CODEINE (Verified Allergy, Mild, 04/07/14) Objective Vital Signs Last 24 Hour Vital Signs Date Time Temp Pulse Resp B/P (MAP) Pulse Ox O2 Delivery O2 Flow Rate FiO2 05/17/17 08:47 78 150/62 05/17/17 08:31 82 20 40 05/17/17 06:34 79 18 40 05/17/17 05:24 77 18 40 05/17/17 04:00 98.2 77 18 109/60 100 Mechanical Ventilator 40 05/17/17 04:00 40 05/17/17 03:55 83 05/17/17 02:56 80 22 40 05/17/17 01:16 79 23 40 05/17/17 00:00 98.4 74 20 151/53 100 Mechanical Ventilator 40 05/17/17 00:00 40 05/16/17 23:50 76 05/16/17 23:15 Mechanical Ventilator 40 05/16/17 23:03 78 22 40 05/16/17 21:00 73 130/67 05/16/17 20:44 72 24 40 05/16/17 20:10 Mechanical Ventilator 40 05/16/17 20:00 40 05/16/17 20:00 98.5 73 20 130/67 100 Mechanical Ventilator 40 05/16/17 19:23 76 22 40 05/16/17 19:10 73 05/16/17 16:40 75 18 40 05/16/17 16:00 84 05/16/17 16:00 98.5 77 18 134/62 99 Mechanical Ventilator 40 05/16/17 16:00 40 05/16/17 15:22 78 24 40 05/16/17 14:42 76 18 40 05/16/17 12:40 74 18 40 05/16/17 12:07 99.8 78 18 117/52 98 Mechanical Ventilator 40 05/16/17 12:00 40 05/16/17 12:00 77 05/16/17 11:18 82 18 40 05/16/17 09:38 82 18 40 05/16/17 08:55 83 05/16/17 08:54 80 129/55 Height (Feet): 5 Height (Inches): 6.00 Weight (Pounds): 297 General Appearance: no acute distress - seborrheic dermatitis of scalp Respiratory/Chest: rhonchi - bilaterally, other - on ventilator Cardiovascular: normal rate Abdomen: soft, non tender, other - GT feeding Extremities: no edema Neurologic/Psychiatric: alert, responsive Microbiology Date/Time Source Procedure Growth Status 05/16/17 11:30 Sputum Gram Stain Pending Resulted 05/16/17 11:30 Sputum Sputum Culture - Preliminary Resulted 05/15/17 02:30 Sacral Buckle Gram Stain - Final Resulted 05/15/17 02:30 Sacral Buckle Wound Culture - Preliminary Resulted Current Medications Medications (Trade) Dose Ordered Sig/Alejandro Route PRN Reason Start Time Stop Time Status Last Admin Dose Admin Amiodarone HCl (Cordarone) 200 mg DAILY NG 05/16/17 09:00 06/15/17 08:59 05/17/17 08:46 Carvedilol (Coreg) 3.125 mg EVERY 12 HOURS GT 05/15/17 21:00 06/14/17 20:59 05/17/17 08:47 Lacosamide (Vimpat) 200 mg Q12HR ORAL 05/15/17 09:00 06/14/17 08:59 05/17/17 08:46 Lansoprazole (Prevacid) 30 mg DAILY GT 05/17/17 09:00 06/16/17 08:59 05/17/17 08:47 Levetiracetam (Keppra) 1,000 mg Q12HR GT 05/15/17 09:00 06/14/17 08:59 05/17/17 08:46 Ondansetron HCl (Zofran) 4 mg Q6H PRN IVP Nausea & Vomiting 05/15/17 06:00 06/14/17 05:59 Piperacillin Sod/ Tazobactam Sod 2.25 gm/Dextrose 55 ml @ 110 mls/hr Q8HR IVPB 05/15/17 13:00 05/20/17 12:59 05/17/17 05:32 Sodium Hypochlorite (Dakin's Half Strength) 1 applic DAILY TOPIC 05/16/17 09:00 06/15/17 08:59 05/17/17 08:47 SLIME SOLIMAN May 17, 2017 08:54
[2017-05-17] MEDS: metroNIDAZOLE 500mg tab GT SCH ×2 (09:39→14:12)
[2017-05-17 10:13] LABS: BASOPHILS % (AUTO) 0.3 % (0.0-2.0); EOSINOPHILS % (AUTO) 2.5 % (0.0-3.0); HEMATOCRIT 30.8 % (37.0-47.0); HEMOGLOBIN 9.8 G/DL (12.0-16.0); LYMPHOCYTES % (AUTO) 16.5 % (20.0-45.0); MEAN CORPUSCULAR VOLUME 92 FL (80-99); MONOCYTES % (AUTO) 4.8 % (1.0-10.0); NEUTROPHILS % (AUTO) 75.9 % (45.0-75.0); PLATELET COUNT 494 K/UL (150-450); RED BLOOD COUNT 3.35 M/UL (4.20-5.40); RED CELL DISTRIBUTION WIDTH 15.3 % (11.6-14.8); WHITE BLOOD COUNT 17.1 K/UL (4.8-10.8)
--- NOTE | 2017-05-17 11:04 | General Progress Note ---
Assessment/Plan Assessment/Plan #. DVT bilaterally of the posterior tibial veins, agree that a IVC filter would have little benefit for her --> agree and reviewed literature in case of posterior tibial vein, would have little benefit for AC or IVC filter --> does not require anticoagulation, recheck duplex in 3 months #. Anemia secondary to chronic disease. --> anemia w/u has been reviewed --> hgb goal >7 --> check occult blood, which is negative #. Anemia secondary to kidney disease. Continue to closely monitor. Continue Epogen. #. Leukocytosis, potentially secondary to underlying infection. Further monitor. Consider antibiotics if worsens. #. Thrombocytosis, likely secondary to underlying anemia. #. Respiratory failure. She is on tracheostomy management. #. Dysphagia, status post percutaneous endoscopic gastrostomy tube #. Mini stroke in 2002. I appreciate the consultation. Subjective Constitutional: Denies: no symptoms, chills, diaphoresis, fever, malaise, weakness, other HEENT: Denies: no symptoms, eye pain, blurred vision, tearing, double vision, ear pain, ear discharge, nose pain, nose congestion, throat pain, throat swelling, mouth pain, mouth swelling, other Cardiovascular: Denies: no symptoms, chest pain, edema, irregular heart rate, lightheadedness, palpitations, syncope, other Respiratory: Denies: no symptoms, cough, orthopnea, shortness of breath, SOB with excertion, SOB at rest, sputum, stridor, wheezing, other Gastrointestinal/Abdominal: Denies: no symptoms, abdomen distended, abdominal pain, black stools, tarry stools, blood in stool, constipated, diarrhea, difficulty swallowing, nausea, poor appetite, poor fluid intake, rectal bleeding , vomiting, other Genitourinary: Denies: no symptoms, burning, discharge, frequency, flank pain, hematuria, incontinence, pain, urgency, other Neurologic/Psychiatric: Denies: no symptoms, anxiety, depressed, emotional problems, headache, numbness, paresthesia, pre-existing deficit, seizure, tingling, tremors, weakness, other Endocrine: Denies: no symptoms, excessive sweating, flushing, intolerance to cold, intolerance to heat, increased hunger, increased thirst, increased urine, unexplained weight gain, unexplained weight loss, other Hematologic/Lymphatic: Denies: no symptoms, anemia, easy bleeding, easy bruising, other Allergies: Coded Allergies: CODEINE (Verified Allergy, Mild, 04/07/14) Subjective on vent, trach Objective Last 24 Hour Vital Signs Date Time Temp Pulse Resp B/P (MAP) Pulse Ox O2 Delivery O2 Flow Rate FiO2 05/17/17 10:38 78 22 40 05/17/17 08:47 78 150/62 05/17/17 08:31 82 20 40 05/17/17 08:00 40 05/17/17 08:00 97.9 78 20 150/62 98 Mechanical Ventilator 40 05/17/17 07:53 77 05/17/17 06:34 79 18 40 05/17/17 05:24 77 18 40 05/17/17 04:00 98.2 77 18 109/60 100 Mechanical Ventilator 40 05/17/17 04:00 40 05/17/17 03:55 83 05/17/17 02:56 80 22 40 05/17/17 01:16 79 23 40 05/17/17 00:00 98.4 74 20 151/53 100 Mechanical Ventilator 40 05/17/17 00:00 40 05/16/17 23:50 76 05/16/17 23:15 Mechanical Ventilator 40 05/16/17 23:03 78 22 40 05/16/17 21:00 73 130/67 05/16/17 20:44 72 24 40 05/16/17 20:10 Mechanical Ventilator 40 05/16/17 20:00 40 05/16/17 20:00 98.5 73 20 130/67 100 Mechanical Ventilator 40 05/16/17 19:23 76 22 40 05/16/17 19:10 73 05/16/17 16:40 75 18 40 05/16/17 16:00 84 05/16/17 16:00 98.5 77 18 134/62 99 Mechanical Ventilator 40 05/16/17 16:00 40 05/16/17 15:22 78 24 40 05/16/17 14:42 76 18 40 05/16/17 12:40 74 18 40 05/16/17 12:07 99.8 78 18 117/52 98 Mechanical Ventilator 40 05/16/17 12:00 40 05/16/17 12:00 77 05/16/17 11:18 82 18 40 Intake and Output 05/16/17 05/17/17 19:00 07:00 Intake Total 120 ml 595 ml Output Total 2250 ml Balance 120 ml -1655 ml Free Water 50 ml 100 ml IV Total 110 ml Tube Feeding 70 ml 385 ml Output Urine Total 250 ml Hemodialysis UF 2000 ml # Bowel Movements 5 1 Laboratory Tests 05/17/17 09:55: White Blood Count 17.1H, Red Blood Count 3.35L, Hemoglobin 9.8L, Hematocrit 30.8L, Mean Corpuscular Volume 92, Mean Corpuscular Hemoglobin 29.2, Mean Corpuscular Hemoglobin Concent 31.8L, Red Cell Distribution Width 15.3H, Platelet Count 494H, Mean Platelet Volume 5.1L, Neutrophils (%) (Auto) 75.9H, Lymphocytes (%) (Auto) 16.5L, Monocytes (%) (Auto) 4.8, Eosinophils (%) (Auto) 2.5, Basophils (%) (Auto) 0.3, Sodium Level [Pending], Potassium Level [Pending] , Chloride Level [Pending], Carbon Dioxide Level [Pending], Blood Urea Nitrogen [Pending], Creatinine [Pending], Estimat Glomerular Filtration Rate [Pending], Glucose Level [Pending], Calcium Level [Pending], Phosphorus Level [Pending], Total Bilirubin [Pending], Aspartate Amino Transf (AST/SGOT) [Pending], Alanine Aminotransferase (ALT/SGPT) [Pending], Alkaline Phosphatase [Pending], Total Protein [Pending], Albumin [Pending], Globulin [Pending] Height (Feet): 5 Height (Inches): 6.00 Weight (Pounds): 297 General Appearance: no apparent distress EENT: normal ENT inspection Neck: normal inspection Cardiovascular: regular rhythm Respiratory/Chest: normal breath sounds Abdomen: no mass Extremities: non-tender Edema: no edema noted Leg (L), no edema noted Leg (R) Edema: moderate edema Neurologic: alert Yang Small May 17, 2017 11:04
[2017-05-17 11:17] LABS: ALANINE AMINOTRANSFERASE 6 U/L (12-78); ALBUMIN 1.4 G/DL (3.4-5.0); ALBUMIN/GLOBULIN RATIO 0.3 (1.0-2.7); ALKALINE PHOSPHATASE 191 U/L (46-116); ANION GAP 9 mmol/L (5-15); ASPARTATE AMINO TRANSFERASE 10 U/L (15-37); BILIRUBIN,TOTAL 0.5 MG/DL (0.2-1.0); BLOOD UREA NITROGEN 23 mg/dL (7-18); CALCIUM 8.2 MG/DL (8.5-10.1); CARBON DIOXIDE 28 MMOL/L (21-32); CHLORIDE 102 MMOL/L (98-107); CREATININE 3.1 MG/DL (0.55-1.30); PHOSPHORUS 3.1 MG/DL (2.5-4.9); POTASSIUM 3.2 MMOL/L (3.5-5.1); SODIUM 139 MMOL/L (136-145)
[2017-05-17 12:00] VITALS: BP 149/65
[2017-05-17] MEDS ORDERED: METRONIDAZOLE500 MG ORAL ×4 (12:27→12:36)
[2017-05-17] MEDS ORDERED: CUBICIN MONIT1 EA IV (12:29)
[2017-05-17] MEDS ORDERED: MEROPENEM500 MG IV (12:35)
--- NOTE | 2017-05-17 15:02 | Cardiology Report ---
APPROVED REPORT EKG Measurement Heart [id number] Normal sinus rhythm Anteroseptal infarct, age undetermined Abnormal ECG
--- NOTE | 2017-05-17 15:21 | Nephrology Progress Note ---
Assessment/Plan Problem List: (1) ESRD (end stage renal disease) (2) Intractable nausea and vomiting Assessment ESRD- Intractable nausea and vomiting- Chronic Respiratory failure- Anemia Obesity Sz disorders DM Plan Plan: K supplement transfused 2 units HD as needed,scheduled 05/16 and as needed Optimize pulmonary and cardiac status per consultants DC planning Subjective Constitutional: Reports: malaise Objective Objective Last 24 Hour Vital Signs Date Time Temp Pulse Resp B/P (MAP) Pulse Ox O2 Delivery O2 Flow Rate FiO2 05/17/17 14:54 79 18 40 05/17/17 12:47 72 19 40 05/17/17 12:00 40 05/17/17 12:00 98.1 77 20 149/65 99 Mechanical Ventilator 40 05/17/17 11:47 72 05/17/17 10:38 78 22 40 05/17/17 08:47 78 150/62 05/17/17 08:31 82 20 40 05/17/17 08:00 40 05/17/17 08:00 97.9 78 20 150/62 98 Mechanical Ventilator 40 05/17/17 07:53 77 05/17/17 06:34 79 18 40 05/17/17 05:24 77 18 40 05/17/17 04:00 98.2 77 18 109/60 100 Mechanical Ventilator 40 05/17/17 04:00 40 05/17/17 03:55 83 05/17/17 02:56 80 22 40 05/17/17 01:16 79 23 40 05/17/17 00:00 98.4 74 20 151/53 100 Mechanical Ventilator 40 05/17/17 00:00 40 05/16/17 23:50 76 05/16/17 23:15 Mechanical Ventilator 40 05/16/17 23:03 78 22 40 05/16/17 21:00 73 130/67 05/16/17 20:44 72 24 40 05/16/17 20:10 Mechanical Ventilator 40 05/16/17 20:00 40 05/16/17 20:00 98.5 73 20 130/67 100 Mechanical Ventilator 40 05/16/17 19:23 76 22 40 05/16/17 19:10 73 05/16/17 16:40 75 18 40 05/16/17 16:00 84 05/16/17 16:00 98.5 77 18 134/62 99 Mechanical Ventilator 40 05/16/17 16:00 40 05/16/17 15:22 78 24 40 Intake and Output 05/16/17 05/17/17 19:00 07:00 Intake Total 120 ml 595 ml Output Total 2250 ml Balance 120 ml -1655 ml Free Water 50 ml 100 ml IV Total 110 ml Tube Feeding 70 ml 385 ml Output Urine Total 250 ml Hemodialysis UF 2000 ml # Bowel Movements 5 1 Laboratory Tests 05/17/17 09:55: White Blood Count 17.1H, Red Blood Count 3.35L, Hemoglobin 9.8L, Hematocrit 30.8L, Mean Corpuscular Volume 92, Mean Corpuscular Hemoglobin 29.2, Mean Corpuscular Hemoglobin Concent 31.8L, Red Cell Distribution Width 15.3H, Platelet Count 494H, Mean Platelet Volume 5.1L, Neutrophils (%) (Auto) 75.9H, Lymphocytes (%) (Auto) 16.5L, Monocytes (%) (Auto) 4.8, Eosinophils (%) (Auto) 2.5, Basophils (%) (Auto) 0.3, Sodium Level 139, Potassium Level 3.2L, Chloride Level 102, Carbon Dioxide Level 28, Anion Gap 9, Blood Urea Nitrogen 23H, Creatinine 3.1H, Estimat Glomerular Filtration Rate 15.2, Glucose Level 183H, Calcium Level 8.2L, Phosphorus Level 3.1, Total Bilirubin 0.5, Aspartate Amino Transf (AST/SGOT) 10L, Alanine Aminotransferase (ALT/SGPT) 6L, Alkaline Phosphatase 191H, Total Protein 6.5, Albumin 1.4L, Globulin 5.1, Albumin/ Globulin Ratio 0.3L Height (Feet): 5 Height (Inches): 6.00 Weight (Pounds): 297 General Appearance: no apparent distress Respiratory/Chest: decreased breath sounds Abdomen: soft RICK LEUNG May 17, 2017 15:20
[2017-05-17 16:00] VITALS: BP 138/61
[2017-05-17] MEDS ORDERED: Tubing Blood Filter IV ONE (16:37)
[2017-05-17] MEDS ORDERED: Tubing IV Secondary IV ONE (16:37)
[2017-05-17] MEDS ORDERED: NS 275ml ONE (16:37)
--- NOTE | 2017-05-17 17:34 | General Progress Note ---
Assessment/Plan Assessment/Plan Assessment - N/V at SNF - suspect due to feeding via G port - s/p GJ tube, presumed due to gastroparesis - Anemia, likely due to CRF and chronic disease - resp failure, s/p trach - h/o CVA Recommendations - continue tube feeds via J port - G port to gravity and for meds - elevate HOB - PPI - d/c planning Subjective Allergies: Coded Allergies: CODEINE (Verified Allergy, Mild, 04/07/14) Subjective above noted seen in am tolerated TF all night no vomiting CT noted Objective Last 24 Hour Vital Signs Date Time Temp Pulse Resp B/P (MAP) Pulse Ox O2 Delivery O2 Flow Rate FiO2 05/17/17 16:00 98.1 76 20 138/61 97 Mechanical Ventilator 40 05/17/17 16:00 40 05/17/17 14:54 79 18 40 05/17/17 12:47 72 19 40 05/17/17 12:00 40 05/17/17 12:00 98.1 77 20 149/65 99 Mechanical Ventilator 40 05/17/17 11:47 72 05/17/17 10:38 78 22 40 05/17/17 08:47 78 150/62 05/17/17 08:31 82 20 40 05/17/17 08:00 40 05/17/17 08:00 97.9 78 20 150/62 98 Mechanical Ventilator 40 05/17/17 07:53 77 05/17/17 06:34 79 18 40 05/17/17 05:24 77 18 40 05/17/17 04:00 98.2 77 18 109/60 100 Mechanical Ventilator 40 05/17/17 04:00 40 05/17/17 03:55 83 05/17/17 02:56 80 22 40 05/17/17 01:16 79 23 40 05/17/17 00:00 98.4 74 20 151/53 100 Mechanical Ventilator 40 05/17/17 00:00 40 05/16/17 23:50 76 05/16/17 23:15 Mechanical Ventilator 40 05/16/17 23:03 78 22 40 05/16/17 21:00 73 130/67 05/16/17 20:44 72 24 40 05/16/17 20:10 Mechanical Ventilator 40 05/16/17 20:00 40 05/16/17 20:00 98.5 73 20 130/67 100 Mechanical Ventilator 40 05/16/17 19:23 76 22 40 05/16/17 19:10 73 Intake and Output 05/16/17 05/17/17 19:00 07:00 Intake Total 120 ml 630 ml Output Total 2250 ml Balance 120 ml -1620 ml Free Water 50 ml 100 ml IV Total 110 ml Tube Feeding 70 ml 420 ml Output Urine Total 250 ml Hemodialysis UF 2000 ml # Bowel Movements 5 1 Laboratory Tests 05/17/17 09:55: White Blood Count 17.1H, Red Blood Count 3.35L, Hemoglobin 9.8L, Hematocrit 30.8L, Mean Corpuscular Volume 92, Mean Corpuscular Hemoglobin 29.2, Mean Corpuscular Hemoglobin Concent 31.8L, Red Cell Distribution Width 15.3H, Platelet Count 494H, Mean Platelet Volume 5.1L, Neutrophils (%) (Auto) 75.9H, Lymphocytes (%) (Auto) 16.5L, Monocytes (%) (Auto) 4.8, Eosinophils (%) (Auto) 2.5, Basophils (%) (Auto) 0.3, Sodium Level 139, Potassium Level 3.2L, Chloride Level 102, Carbon Dioxide Level 28, Anion Gap 9, Blood Urea Nitrogen 23H, Creatinine 3.1H, Estimat Glomerular Filtration Rate 15.2, Glucose Level 183H, Calcium Level 8.2L, Phosphorus Level 3.1, Total Bilirubin 0.5, Aspartate Amino Transf (AST/SGOT) 10L, Alanine Aminotransferase (ALT/SGPT) 6L, Alkaline Phosphatase 191H, Total Protein 6.5, Albumin 1.4L, Globulin 5.1, Albumin/ Globulin Ratio 0.3L Height (Feet): 5 Height (Inches): 6.00 Weight (Pounds): 297 Objective Obese WW NCAT (+) trach CTA RRR Soft ND NT, (+) GJ tube no edema KELLEN IBANEZ May 17, 2017 17:34
--- NOTE | 2017-05-20 10:27 | Discharge Summary ---
Discharge Summary Hospital Course Date of Admission May 14, 2017 at 23:57 Date of Discharge May 17, 2017 at 16:38 Admitting Diagnosis intractable N/V HPI Abbie Prabhakar is a 61 year old female who was admitted on May 14, 2017 at 23:57 for Intractable Nausea/Vomiting Hospital Course dc summary #[id number] Discharge Medications Continued Medications: Amiodarone Hcl* (Amiodarone Hcl*) 400 Mg Tablet 200 MG NG DAILY, TAB Ascorbic Acid* (Vitamin C*) 250 Mg Tablet 250 MG GT DAILY, #30 TAB 0 Refills Carvedilol* (Carvedilol*) 3.125 Mg Tablet 3.125 MG GT EVERY 12 HOURS, TAB Famotidine (Famotidine) 20 Mg Tablet 20 MG GT DAILY, #30 TAB 0 Refills Ferrous Sulfate (Ferrous Sulfate) 300 Mg/5 Ml Liquid Unknown Dose ORAL, #473 ML 0 Refills Heparin Sod (Porcine) (Heparin Sodium*) 5 000/1 Ml Vial 5000 UNITS SUBQ EVERY 12 HOURS, VIAL Hydrocodone Bit/Acetaminophen 5-325* (Roosevelt 5-325*) 1 Each Tablet 1 TAB DAILY PRN for For Pain, TAB 0 Refills Insulin Aspart* (Novolog*) 100 Unit/1 Ml Insuln.pen 0 SUBQ, #1 EA 0 Refills Ipratropium/Albuterol Sulfate (DuoNeb 0.5-3(2.5)mg/3ml) 3 Ml Ampul.neb 3 ML HHN, EA Lacosamide (Vimpat) 10 Mg/1 Ml Solution 200 MG GT TWICE A DAY Levetiracetam* (Levetiracetam*) 100 Mg/1 Ml Solution 1000 MG GT BID Meropenem (Meropenem) 500 Mg Vial 500 MG IV DAILY for 5 Days, VIAL Metronidazole* (Flagyl*) 500 Mg Tablet 500 MG ORAL EVERY 8 HOURS for 7 Days, TAB Protein Supplement (Promod) 946 Ml Liquid 30 ML GT FOUR TIMES A DAY, ML Vit B Cmplx 3/Fa/Vit C/Biotin (Jodie-Rhys Rx Tablet) 1 Each Tablet 1 EACH GT, TAB Discharge Condition Upon Discharge: stable Discharge Disposition Patient was discharged to SNF/Subacute Facility(03) Discharge Diagnoses: Discharge Instructions Discharge Instructions Special Instructions I have been assigned to complete a D/C Summary on this account. I was not involved in the patient management Esvin FelixAlbertina zepeda NP May 20, 2017 10:27
--- NOTE | 2017-05-21 03:47 | Discharge Summary 2 SIG ---
DATE OF ADMISSION: 05/14/2017 DATE OF DISCHARGE: 05/17/2017 REASON FOR ADMISSION: A 61-year-old female, resident of the snf facility with past medical history significant of CVA, COPD, diabetes, hypertension, ventilator-dependent respiratory failure with tracheostomy status, dysphagia, G-J tube, seizure disorder, bedbound, end-stage renal disease, on hemodialysis, presented with two days of intractable nausea and vomiting. The emesis was described as nonbilious and nonbloody. No diarrhea. Workup in the emergency room revealed stable vital signs. Chest x-ray revealed cardiomegaly with pulmonary vascular congestion and patchy retrocardiac consolidation. EKG revealed normal sinus rhythm. No acute ischemic changes. WBC-14.9, hemoglobin -9.4, hematocrit -29.5. Lactic acid -0.9. Potassium- 3.1, BUN- 28, creatinine -3.4 consistent with known history of end-stage renal disease. Troponin negative. Liver enzymes stable. Albumin -1.6. Pro BNP over 35,000. The patient was admitted with diagnosis of intractable nausea, vomiting, end-stage renal disease , seizure disorder, hypokalemia. HOSPITAL COURSE: The patient admitted. GI, Nephrology, ID consults were requested as well as the Hematology consult. Hemodialysis was provided as per educational consultant. Electrolytes were corrected as needed. Renal parameters were closely monitored. The patient noted to be anemic and hemoglobin was trending down. On 05/16/2017, hemoglobin down to 7.9, hematocrit -24.5. The patient subsequently undergone transfusion of two units of packed red blood cells. Post transfusion next day, hemoglobin-9.8, hematocrit -30.8. Anemia workup revealed anemia of chronic disease with elevated ferritin - 1649. Operations Asst closely followed. Per rip/mould operator, the patient had anemia workup which was consistent with anemia of chronic disease, specifically anemia of chronic kidney disease. The patient was on Epogen. Abdominal ultrasound reveal hepatomegaly with fatty infiltration, but unremarkable gallbladder examination. CT of the abdomen and pelvis did not revealed abscess. However, it demonstrated suspected colitis versus under distention in the rectosigmoid region. Bilateral pleural effusion with basilar atelectasis versus pneumonia. Anasarca. Gastrostomy tube. ID closely followed the patient. The patient was on empiric antibiotics. Sputum culture was positive for Pseudomonas. Wound culture of sacral un-stageable decubitus ulcer was positive for E. coli and Klebsiella pneumoniae ESBL, but ulcer did not appear to be infected. The patient was on antibiotics for5 treatment of colitis and pneumonia. The patient will need to continue antibiotics at the snf facility to complete the course as recommended by ID. GI closely followed. According to the GI specialist, the patient had GJ tube. Per GI, giving tube feeding through the gastrostomy port may have resulted in nausea and vomiting due to presumed gastroparesis. A trial tube feeding started via the jejunostomy port. Leukocytosis was likely secondary to underlying colitis and pneumonia. Nausea and vomiting resolved , and the patient was able to tolerate tube feeding via J port. Intractable nausea and vomiting presumed to be secondary to feedings via G-tube and secondary to gastroparesis. GI recommended to continue tube feedings via J- port, and G-tube was placed to gravity and for medications. The patient was on PPI. Strict aspiration and reflux precautions were maintained. Operations Asst closely followed the patient for anemia. Venous Duplex of bilateral lower extremities revealed acute DVT in popliteal veins bilaterally. According to the rip/mould operator IVC filter would have little benefit for this patient and per review of literature in case of posterior tibial vein, it had little benefit for anticoagulation or IVC filter. The patient did not require any anticoagulation. Operations Asst recommended to recheck venous Duplex in three months. Blood sugar was managed with sliding scale of insulin. Wound care provided as per wound care nurse recommendation. Seizure precaution were maintained. No seizure activity while in the hospital. Keppra was continued.The patient was stable for discharge. FINAL DIAGNOSES: 1. Intractable nausea and vomiting( presumed to be due to the feeding via G-port and secondary to gastroparesis), resolved. 2. Respiratory failure with tracheostomy. 3. Anemia of chronic disease. 4. Anemia of kidney disease. 5. Leukocytosis. 6. Pneumonia with Pseudomonas. 7. Colitis. 8. End-stage renal disease, on hemodialysis. 9. Diabetes. 10. Dysphagia., GJ-tube status . 11. Acute DVT, bilateral lower extremities. 12. History of CVA. 13. Morbid obesity. 14. Seizure disorder. 15. Sacral un-stageable pressure ulcer, present on admission. 16. Hypokalemia DISCHARGE INSTRUCTION: The patient was discharged to snf facility. The patient to follow up with medical doctor at the facility and certified master locksmith. DISCHARGE MEDICATIONS: See medication reconciliation list. Complete antibiotic course as specified by ID. Simone Murillo M.D. I have been assigned to dictate discharge summary on this account and I was not involved in the patient's management. Albertina Mcallister (Vanchtein) N.POscar DR: Joseph JOB#: [id number] CC: RADHA
--- NOTE | 2017-06-02 20:38 | Diagnostic Imaging Report ---
APPROVED REPORT CPT Code: 78715 Present Symptoms Lower Extremity Pain: Lower Extremity Edema: Bilateral Shortness of breath Comments: R/O DVT. Technically difficult study due to vessel depth (mid-thigh and calf area). RIGHT LEG: Venous imaging reveals acute thrombus in one of the paired posterior tibial veins. Imaging reveals patency of the common femoral, superficial femoral, popliteal and peroneal veins. The greater saphenous vein is within normal limits. LEFT LEG: Venous imaging reveals acute thrombus in both posterior tibial veins. Imaging reveals patency of the common femoral, superficial femoral, popliteal and peroneal veins. The greater saphenous vein is within normal limits. GRISEL David was informed of abnormal results at 14:40 hrs.
== END 2017-05-17 16:38 | DRG 254 ==
LOC: EDBD 22:57 → EDUNIT# 22:57 → EMR 23:12 → 2W 23:57 → EDBEDREQ 05-15 00:40
PROC: 5A1945Z Respiratory Ventilation, 24-96 Consecutive Hours (ICD-10-PCS; 2017-05-14)
PROC: 5A1D70Z Performance of Urinary Filtration, Intermittent, Less than 6 Hours Per Day (ICD-10-PCS; principal; 2017-05-15)
DX: K31.84 Gastroparesis (principal); Z99.11 Dependence on respirator [ventilator] status; J15.1 Pneumonia due to Pseudomonas; J96.10 Chronic respiratory failure, unspecified whether with hypoxia or hypercapnia; L89.154 Pressure ulcer of sacral region, stage 4; Z93.0 Tracheostomy status; R13.10 Dysphagia, unspecified; N18.6 End stage renal disease; F03.90 Unspecified dementia, unspecified severity, without behavioral disturbance, psychotic disturbance, mood disturbance, and anxiety; I12.0 Hypertensive chronic kidney disease with stage 5 chronic kidney disease or end stage renal disease; Z68.42 Body mass index [BMI] 45.0-49.9, adult; Z93.1 Gastrostomy status; Z99.2 Dependence on renal dialysis; G40.909 Epilepsy, unspecified, not intractable, without status epilepticus; E11.22 Type 2 diabetes mellitus with diabetic chronic kidney disease; E87.6 Hypokalemia; Z74.01 Bed confinement status; D63.1 Anemia in chronic kidney disease; E66.01 Morbid (severe) obesity due to excess calories; D47.3 Essential (hemorrhagic) thrombocythemia; I82.443 Acute embolism and thrombosis of tibial vein, bilateral
CPT/HCPCS: 36415; 71045; 74176; 76700; 80048; 80053; 80061; 82607; 82728; 82977; 83036; 83540; 83550; 83605; 83735; 83880; 84100; 84443; 84484; 84550; 85007; 85025; 85060; 86140; 86850; 86900; 86901; 86920; 87070; 87081; 87181; 87205; 93005; 93970; 94002; 94003; 94664; 99285; J2405; J8499